=== PATIENT | male | born 1960 | race Hispanic/Latino ===

== ENCOUNTER 2021-08-10 13:30 | Emergency (ER) | payer MEDICAID, OTHER ==
[~2021-08-10] VITALS: Ht 175.3 cm; Wt 96.6 kg
[2021-08-10 14:05] LABS: EOSINOPHILS % (AUTO) 10.5 % (0.0-8.0); HEMATOCRIT 43.1 % (42-54); LYMPHOCYTES % (AUTO) 27.1 % (21.0-51.0); MEAN CORPUSCULAR HEMOGLOBIN 30.8 pg (27.0-33.0); MEAN CORPUSCULAR HGB CONC 34.3 g/dL (32.0-36.0); MEAN CORPUSCULAR VOLUME 89.6 fL (79-99); MONOCYTES % (AUTO) 6.5 % (3.0-13.0); NEUTROPHILS % (AUTO) 54.7 % (40.0-77.0); PLATELET COUNT (AUTO) 232 K/uL (130-400); RED BLOOD CELL COUNT(AUTO) 4.81 MIL/uL (4.50-6.20); RED CELL DISTRIBUTION WIDTH 12.8 % (11.0-15.5)
[2021-08-10 14:14] LABS: CREATININE 1.2 mg/dL (0.5-1.5)
[2021-08-10 14:18] LABS: ALBUMIN 3.6 g/dL (3.5-5.0); BILIRUBIN,TOTAL 0.6 mg/dL (0.2-1.0); TOTAL PROTEIN, SERUM 6.7 g/dL (6.0-8.3)
[2021-08-10] MEDS ORDERED: AZITHROMYCIN 250 MG TABLET PO ONE (14:30)
[2021-08-10] MEDS ORDERED: ALBUTEROL 0.083% 2.5 MG/3 ML INH IH ONE ×2 (14:30→15:00)
[2021-08-10] MEDS ORDERED: SOLU-MEDROL 125MG VIAL IVP ONE (14:30)
[2021-08-10] MEDS ORDERED: AMOX/CLAV 875/125MG TAB PO ONE (14:30)
[2021-08-10] MEDS ORDERED: 0.9%NACL 1000ML 1,000 ML IV SCH (14:30)
[2021-08-10] MEDS ORDERED: IPRATROPIUM/ALBUTEROL SULFATE 3 ML SOLUTION IH ONE ×2 (14:30→14:37)
[2021-08-10] MEDS ORDERED: GUAIFENESIN-CODEINE 5 ML SYRUP PO ONE (14:30)
[2021-08-10] MEDS ORDERED: PRED20TA3 PO (15:31)
[2021-08-10] MEDS ORDERED: BENZ-39 PO (15:31)
[2021-08-10] MEDS ORDERED: ALBU8.5H8 IH (15:31)
[2021-08-10] MEDS ORDERED: AMOX1TAB16 PO (15:31)
[2021-08-10 15:40] VITALS: BP 121/59
== END 2021-08-10 15:51 | disposition home or self-care (01) ==
LOC: EDH 13:30
DX: J20.9 Acute bronchitis, unspecified (principal); E86.0 Dehydration; Z20.822 Contact with and (suspected) exposure to COVID-19
CPT/HCPCS: 36415; 71045; 80053; 84484; 85025; 87635; 87804 ×2; 93005; 94640 ×3; 96361; 96374; 99285; C9803; J2930; J7030

== ENCOUNTER 2021-08-28 09:00 | Emergency (ER) | payer OTHER ==
[~2021-08-28] VITALS: Ht 175.3 cm; Wt 96.6 kg
[~2021-08-28 09:00] MED LIST: ALBU8.5H8 IH; AMOX1TAB16 PO; BENZ-39 PO; PRED20TA3 PO
[2021-08-28 09:27] LABS: BASOPHILS % (AUTO) 0.6 % (0.0-5.0); EOSINOPHILS % (AUTO) 9.2 % (0.0-8.0); HEMATOCRIT 46.3 % (42-54); LYMPHOCYTES % (AUTO) 29.1 % (21.0-51.0); MEAN CORPUSCULAR HEMOGLOBIN 30.7 pg (27.0-33.0); MEAN CORPUSCULAR HGB CONC 33.7 g/dL (32.0-36.0); MEAN CORPUSCULAR VOLUME 91.1 fL (79-99); MONOCYTES % (AUTO) 8.9 % (3.0-13.0); PLATELET COUNT (AUTO) 230 K/uL (130-400); RED BLOOD CELL COUNT(AUTO) 5.08 MIL/uL (4.50-6.20); WHITE BLOOD COUNT (AUTO) 6.4 K/uL (4.8-10.8)
[2021-08-28 09:48] LABS: ALBUMIN 3.8 g/dL (3.5-5.0); BILIRUBIN,TOTAL 0.5 mg/dL (0.2-1.0); CREATININE 1.3 mg/dL (0.5-1.5); POTASSIUM 5.1 mmol/L (3.5-5.1); TOTAL PROTEIN, SERUM 7.1 g/dL (6.0-8.3)
[2021-08-28] MEDS ORDERED: IPRATROPIUM/ALBUTEROL SULFATE 3 ML SOLUTION IH ONE (10:00)
[2021-08-28] MEDS ORDERED: SOLU-MEDROL 125MG VIAL IVP ONE (10:00)
[2021-08-28 10:49] LABS: B-TYPE NATRIURETIC PEPTIDE 44 pg/mL (0-100)
[2021-08-28] MEDS ORDERED: PREDNISOLONE 15 MG/5 ML SOLN PO STA (11:20)
[2021-08-28] MEDS ORDERED: ALBUTEROL 0.083% 2.5 MG/3 ML INH IH ONE (11:30)
[2021-08-28] MEDS ORDERED: PRED5TAB PO (12:11)
[2021-08-28] MEDS ORDERED: LORA10TA7 PO (12:11)
[2021-08-28 12:29] VITALS: BP 136/82
== END 2021-08-28 12:30 | disposition home or self-care (01) ==
LOC: EDH 09:00
DX: J44.1 Chronic obstructive pulmonary disease with (acute) exacerbation (principal); Z20.822 Contact with and (suspected) exposure to COVID-19; Z79.899 Other long term (current) drug therapy; Z98.890 Other specified postprocedural states
CPT/HCPCS: 36415; 71045; 80053; 83880; 84484; 85025; 87635; 87804 ×2; 94640 ×2; 96374; 99284; C9803; J2930

== ENCOUNTER 2021-10-10 15:17 | Emergency (ER) | payer OTHER ==
[~2021-10-10] VITALS: Ht 175.3 cm; Wt 96.2 kg
[~2021-10-10 15:17] MED LIST changes: +LORA10TA7 PO; +PRED5TAB PO
[2021-10-10 15:23] VITALS: BP 103/78
[2021-10-10] MEDS ORDERED: KETOROLAC 60 MG VIAL (30MG/ML) IM ONE ×2 (15:54→16:00)
[2021-10-10] MEDS ORDERED: CYCLOBENZAPRINE HCL 10 MG TABLET ONE (15:55)
[2021-10-10] MEDS ORDERED: CYCLOBENZAPRINE HCL 10 MG TABLET PO ONE (16:00)
[2021-10-10] MEDS ORDERED: TRAM1TAB2 PO (17:41)
[2021-10-10] MEDS ORDERED: AMOX1TAB16 PO (17:41)
[2021-10-10] MEDS ORDERED: AMOX/CLAV 875/125MG TAB PO ONE ×2 (17:42→18:00)
== END 2021-10-10 17:54 | disposition home or self-care (01) ==
LOC: EDH 15:17
DX: S02.2XXA Fracture of nasal bones, initial encounter for closed fracture (principal); S16.1XXA Strain of muscle, fascia and tendon at neck level, initial encounter; J45.909 Unspecified asthma, uncomplicated; Z79.52 Long term (current) use of systemic steroids; E66.9 Obesity, unspecified; Z68.31 Body mass index [BMI] 31.0-31.9, adult; W18.39XA Other fall on same level, initial encounter; Y93.89 Activity, other specified; Y92.89 Other specified places as the place of occurrence of the external cause; Y99.8 Other external cause status
CPT/HCPCS: 99284; 70450; 72125; 70486; 96372; J1885

== ENCOUNTER 2022-11-07 13:46 | Emergency (ER) | payer OTHER ==
[~2022-11-07] VITALS: Ht 175.3 cm; Wt 98.0 kg
[~2022-11-07 13:46] MED LIST changes: +TRAM1TAB2 PO
[2022-11-07 15:17] LABS: BASOPHILS # (AUTO) 0.06 K/uL (0.00-0.20); BASOPHILS % (AUTO) 0.7 % (0.0-5.0); EOSINOPHILS # (AUTO) 0.51 K/uL (0.00-0.70); EOSINOPHILS % (AUTO) 6.2 % (0.0-8.0); HEMATOCRIT 47.7 % (42-54); IMMATURE GRANULOCYTE ABSOLUTE 0.02 K/uL (0-1); MEAN CORPUSCULAR HEMOGLOBIN 30.3 pg (27.0-33.0); MEAN CORPUSCULAR HGB CONC 32.5 g/dL (32.0-36.0); MEAN CORPUSCULAR VOLUME 93.3 fL (79-99); MONOCYTES # (AUTO) 0.6 K/uL (0.1-1.0); NEUTROPHILS % (AUTO) 60.9 % (40.0-77.0); PLATELET COUNT (AUTO) 244 K/uL (130-400); RED BLOOD CELL COUNT(AUTO) 5.11 MIL/uL (4.50-6.20); RED CELL DISTRIBUTION WIDTH 13.3 % (11.0-15.5); WHITE BLOOD COUNT (AUTO) 8.2 K/uL (4.8-10.8)
[2022-11-07 15:19] LABS: APPEARANCE,URINE CLEAR (CLEAR); BILIRUBIN,URINE NEGATIVE (NEGATIVE); COLOR,URINE YELLOW (YELLOW); GLUCOSE, URINE (UA) NEGATIVE (NEGATIVE); KETONES,URINE NEGATIVE (NEGATIVE); LEUKOCYTE ESTERASE ,URINE NEGATIVE Leu/uL (NEGATIVE); NITRATE,URINE NEGATIVE (NEGATIVE); OCCULT BLOOD,URINE NEGATIVE (NEGATIVE); PROTEIN,URINE 10 mg/dL (NEGATIVE); UROBILINOGEN,URINE 3 mg/dL (0.2-1.0)
[2022-11-07 15:30] LABS: CREATININE 1.3 mg/dL (0.5-1.5); POTASSIUM 4.1 mmol/L (3.5-5.1)
[2022-11-07 15:32] LABS: ADD UA MICROSCOPIC YES
[2022-11-07 15:34] LABS: BACTERIA,URINE RARE /HPF (None Seen); MUCUS,URINE FEW LPF (None Seen); RBC,URINE 0-1 /HPF (0-1); WBC,URINE 0-1 /HPF (0-1)
[2022-11-07 15:36] LABS: ALBUMIN 3.8 g/dL (3.5-5.0); BILIRUBIN,TOTAL 0.6 mg/dL (0.2-1.0); TOTAL PROTEIN, SERUM 7.3 g/dL (6.0-8.3)
[2022-11-07 16:55] VITALS: BP 117/69; PULSE 69; RESP 17; O2SAT 98
[2022-11-07] MEDS ORDERED: ACETAMINOPHEN 500 MG TABLET ONE (17:00)
[2022-11-07] MEDS ORDERED: ACETAMINOPHEN 500 MG TABLET PO ONE (17:30)
== END 2022-11-07 17:04 | disposition home or self-care (01) ==
LOC: EDH 13:46
DX: N20.0 Calculus of kidney (principal); J45.909 Unspecified asthma, uncomplicated; E66.9 Obesity, unspecified; Z79.52 Long term (current) use of systemic steroids; Z68.31 Body mass index [BMI] 31.0-31.9, adult
CPT/HCPCS: 36415; 74176; 80053; 81001; 85025

== ENCOUNTER 2025-02-05 12:57 | Inpatient (IN) | payer OTHER ==
[2025-02-05] VITALS (7 sets, daily range): BP systolic 132–141; BP diastolic 72–81; PULSE 103–118; RESP 18–24; TEMP 98.4–99.6; O2SAT 97
[~2025-02-05] VITALS: Ht 175.3 cm; Wt 97.7 kg
--- NOTE | 2025-02-05 13:04 | NUR ---
PT JUST PLACED BY EMS IN ED BED 12
--- NOTE | 2025-02-05 13:12 | ERN ---
ED Note History of Present Illness Stated Complaint: SOB Chief Complaint: Dyspnea/Respdistress Time Seen by MD: 13:07 Dictation: Say 64-year-old male coming in via EMS with complaints of shortness a breath congested cough and body aches for the last two days. He states the cough has been productive with green-yellow phlegm. He has had low-grade fever. Says he has a history of COPD emphysema with a asthma. Has been using albuterol without success. Use minutes prior to arrival, then was given terbutaline by EMS in route. Allergies: Coded Allergies: vancomycin (Unverified Allergy, Intermediate, SWELLING, 12/16/22) Home Meds Active Scripts Losartan Potassium (Cozaar) 50 Mg Tablet, 50 MG PO BID, #60 TAB 0 Refills Prov:JOAQUIN ZELAYA [facility] 12/18/22 Guaifenesin/Codeine Phos (Guaifenesin-Codeine Syrup) 10 Mg-100 Mg/5 Ml (5 Ml) Liq, 10 ML PO Q4H PRN for COUGH/COLD SYMPTOMS, #280 ML 0 Refills Prov:JOAQUIN ZELAYA [facility] 12/18/22 Cefuroxime Axetil (Cefuroxime) 500 Mg Tablet, 500 MG PO BID, #10 TAB 0 Refills Prov:JOAQUIN ZELAYA [facility] 12/18/22 Prednisone (Prednisone) 20 Mg Tablet, 40 MG PO DAILY, #5 TAB 0 Refills Prov:JOAQUIN ZELAYA [facility] 12/18/22 Reported Medications Amoxicillin/Potassium Clav (Amox Tr-K Clv 875-125 mg Tab) 875 Mg-125 Mg Tablet, 1 TAB PO BID for 10 Days, #20 TAB 0 Refills 04/27/ Guaifenesin (Guaifenesin) 400 Mg Tablet, 600 MG PO BID PRN for COUGH/COLD SYMPTOMS, TAB 04/27/25 Albuterol Sulfate (Ventolin Hfa) 90 Mcg Hfa.aer.ad, 2 PUFF IH Q4HPRN PRN for wheezing for 30 Days, #18 GM 0 Refills 04/27/25 Prednisone (Prednisone) 10 Mg Tab.ds.pk, 1 TAB PO DAILY for 5 Days, #21 TAB 0 Refills 04/27/24 Rosuvastatin Calcium (Rosuvastatin Calcium) 40 Mg Tablet, 1 TAB PO DAILY for high cholesterol for 30 Days, #30 TAB 0 Refills 04/27/24 Venlafaxine HCl (Venlafaxine HCl) 75 Mg Tablet, 75 MG PO DAILY, TAB 04/27/24 Ipratropium/Albuterol Sulfate (Combivent Respimat Inhal [place]) 20 Mcg-100 Mcg/Actuation Aer.w.adap, 4 GM IH Q2HPRN PRN for SHORTNESS OF BREATH/WHEEZING 12/10/22 Bupropion HCl (Bupropion HCl) 100 Mg Tablet, 300 MG PO DAILY, TAB 12/10/22 Sertraline HCl (Sertraline HCl) 100 Mg Tablet, 100 MG PO DAILY, TAB 12/10/22 Montelukast Sodium (Montelukast Sodium) 10 Mg Tablet, 10 MG PO HS, TAB 12/10/22 Omeprazole (Omeprazole) 20 Mg Tablet.dr, 20 MG PO DAILY, TAB 12/10/22 Folic Acid (Folvite) 1 Mg Tab, 1 MG PO DAILY, TAB 12/10/22 Sildenafil Citrate (Viagra) 100 Mg Tablet, 100 MG PO AD for ERECTILE DYSFUNCTION, TAB 12/10/22 Trazodone HCl (Trazodone HCl) 50 Mg Tablet, 50 MG PO HS, TAB 12/10/22 Gabapentin (Gabapentin) 100 Mg Capsule, 100 MG PO TID, CAP 12/10/22 Lisinopril (Lisinopril) 5 Mg Tablet, 2.5 MG PO DAILY, TAB 12/10/22 Cetirizine HCl (Cetirizine HCl) 10 Mg Tablet, 10 MG PO DAILY, TAB 12/10/22 Fluticasone Propionate (Flonase Nasal [place]) 50 Mcg/Actuation [place], 50 MCG NASAL HS, SPRAY 12/10/22 Ipratropium/Albuterol Sulfate (Iprat-Albut 0.5-3(2.5) mg/3 ml) 0.5 Mg-3 Mg (2.5 Mg Base)/3 Ml Ampul.neb, 3 ML IH QIDP PRN for SHORTNESS OF BREATH/WHEEZING 12/10/22 Past Medical History Past Medical History: Asthma, COPD, GERD, Heart Disease, Other Additional Past Medical Hx: OBESE Surgical History: Cholecystectomy Surgical History Other: LEFT SHOULDER, Family History: Negative Social History: Negative RN Note Reviewed/Agreed w/PFSH: Yes Review of System Dictation CONSTITUTIONAL: NEGATIVE EXCEPT FOR HPI FEVER CHILLS HEAD/FACE: NEGATIVE EXCEPT FOR HPI EENT: NEGATIVE EXCEPT FOR HPI RESPIRATORY: NEGATIVE EXCEPT FOR HPI SEVERE SHORTNESS A BREATH WITH DYSPNEA HYPOXIA GASTROINTESTINAL/ABDOMINAL: NEGATIVE EXCEPT FOR HPI GENITOURINARY: NEGATIVE EXCEPT FOR HPI MUSCULOSKELETAL: NEGATIVE EXCEPT FOR HPI INTEGUMENTARY: NEGATIVE EXCEPT FOR HPI NEUROLOGICAL/PSYCH: NEGATIVE EXCEPT FOR HPI HEMATOLOGIC/LYMPHATIC: NEGATIVE EXCEPT FOR HPI ALL SYSTEMS NEGATIVE, EXCEPT NOTED ABOVE. 13 POINT REVIEW OF SYSTEMS ASSESSED AND ALL NEGATIVE EXCEPT FOR ABOVE. Initial Vital Sign VS Vital Signs Date Time Temp Pulse Resp B/P (MAP) Pulse Ox O2 Delivery O2 Flow Rate FiO2 02/05/25 13:04 100.4 116 26 156/84 97 Nasal Cannula 3.0 Physical Exam Dictation VITAL SIGNS REVIEWED MODERATE ACUTE DISTRESS, WELL DEVELOPED, NOURISHED. HEAD AND FACE: NON-TRAUMATIC. EYES: PERRL, PINK CONJUNCTIVAS, EYELID NO TRAUMA, ANTERIOR CHAMBER WITH ARCUS SENILIS. EARS: PINNAS INTACT AND NO SIGNS OF TRAUMA OR ERYTHEMA EAR CANALS CLEAR AND NO DISCHARGE TM NO ERYTHEMA NOSE: NO DISCHARGE, NO BLEEDING. OROPHARYNX: MOUTH NORMAL, TONGUE PINK, PHARYNX CLEAR,NO ERYTHEMA, TONSILS NO EXUDATES, NO ABSCESSES NOTED, MUCOUS MEMBRANE MOIST NECK: SUPPLE, NON-TENDER, NO THYROMEGALY, NO MASSES, NO JVD, NO BRUITS BREAST:DEFERRED CHEST:NO TENDERNESS, NO CREPITUS, NO PARADOXICAL MOVEMENT, NO RETRACTIONS LUNGS: CLEAR TO AUSCULTATION VERY DIMINISHED THROUGHOUT. TACHYPNEA PATIENT ONLY ABLE TO SPEAK 3-4 WORD SENTENCES HEART: TACHYCARDIA/REGULAR, NO MURMUR, NO GALLOPS VASCULAR: NO PERIPHERAL EDEMA, ABDOMEN: SOFT, POSITIVE BOWEL SOUNDS, NONDISTENDED, NO GUARDING, NONTENDER, NO REBOUND, NO MASSES NO HEPATOMEGALY, NO SPLENOMEGALY, NO WINSLOW'S SIGN, NO HERNIAS. RECTAL: DEFERRED GENITAL: DEFERRED NEUROLOGICAL: NORMAL SPEECH, MOTOR FUNCTION INTACT, SENSORY FUNCTION INTACT MUSCULOSKELETAL: NECK NONTENDER, FULL RANGE OF MOTION, BACK NONTENDER, FULL RANGE OF MOTION, EXTREMITIES: NONTENDER, FULL RANGE OF MOTION SKIN: COLOR PINK, DRY, NO TURGOR, NO RASH, NO LACERATIONS, NO ABRASIONS, NO CONTUSIONS. LYMPHATIC: DEFERRED Results (Laboratory/Radiology) Laboratory/Radiology Laboratory Tests Test 02/05/25 13:15 02/05/25 13:21 02/05/25 13:30 02/05/25 13:33 Blood Gas Specimen Type Arterial Arterial Arterial Blood pH 7.420 (7.350-7.450) 7.435 (7.350-7.450) Arterial Blood Partial Pressure CO2 32 mmHg (35-48) L 28 mmHg (35-48) L Arterial Blood Partial Pressure O2 < 45.0 mmHg (83.0-108.0) 67.1 mmHg (83.0-108.0) L Arterial Blood HCO3 20.0 mmol/L (21.0-28.0) L 18.6 mmol/L (21.0-28.0) L Arterial Blood Oxygen Saturation 49.4 % (94.0-98.0) L 94.4 % (94.0-98.0) Arterial Blood Base Excess -3.3 mmol/L (-2.0-3.0) L -4.3 mmol/L (-2.0-3.0) L Hemoglobin (Blood Gas) 15.5 g/dL (13.5-17.5) 13.4 g/dL (13.5-17.5) L Sodium (Blood Gas) 139 MMOL/L (136-145) 138 MMOL/L (136-145) Bedside Potassium (Blood Gas) 3.7 MMOL/L (3.4-4.5) 3.7 MMOL/L (3.4-4.5) Bedside Chloride (Blood Gas) 104 MMOL/L (98-107) 106 MMOL/L (98-107) Bedside Glucose (Blood Gas) 100 MG/DL (65-95) H 93 MG/DL (65-95) Bedside Ionized Calcium (Blood Gas) 1.15 MMOL/L (1.15-1.33) 1.11 MMOL/L (1.15-1.33) L Bedside Lactic Acid (Blood Gas) 2.57 MMOL/L (0.36-0.75) H 2.10 MMOL/L (0.36-0.75) H Blood Gas Temperature 37.0 CELSIUS (35.5-37.0) 37.0 CELSIUS (35.5-37.0) Blood Gas Flow-by 3.00 L/min (0.00-15.00) 3.00 L/min (0.00-15.00) Blood Gas Vent Mode NC (ROOM AIR) NC (ROOM AIR) FiO2 32.0 % 32.0 % Blood Gas Specimen Comment RR RR RN LUPE White Blood Count 7.8 K/uL (4.8-10.8) Red Blood Count 5.09 MIL/uL (4.50-6.20) Hemoglobin 15.3 g/dL (14.0-18.0) Hematocrit 45.8 % (42-54) Mean Corpuscular Volume 90.0 fL (79-99) Mean Corpuscular Hemoglobin 30.1 pg (27.0-33.0) Mean Corpuscular Hemoglobin Concent 33.4 g/dL (32.0-36.0) Red Cell Distribution Width 13.2 % (11.0-15.5) Platelet Count 227 K/uL (130-400) Mean Platelet Volume 10.0 fL (7.5-10.5) Nucleated Red Blood Cells 0.0 % (0.0-0.19) Sodium Level 140 mmol/L (136-145) Potassium Level 3.5 mmol/L (3.5-5.1) Chloride Level 104 mmol/L (101-111) Carbon Dioxide Level 25 mmol/L (21-32) Blood Urea Nitrogen 10 mg/dL (7-18) Creatinine 1.3 mg/dL (0.5-1.3) Glomerular Filtration Rate Calc 61 mL/min (>90) Random Glucose 101 mg/dL (70-105) Lactic Acid Level 2.9 mmol/L (0.8-2.5) H Total Calcium 8.5 mg/dL (8.5-10.1) Magnesium Level 1.70 mg/dL (1.80-2.40) L Troponin I High Sensitivity 8 ng/L (4-75) B-Type Natriuretic Peptide 47 pg/mL (0-100) Influenza Type A Antigen Positive For Type A Influenza Type B Antigen Negative For Type B SARS-CoV-2 Antigen (Rapid) PRESUMPTIVE NEGATIVE Labs Reviewed?: Yes EKG Comment: 1301/EKG SINUS TACHYCARDIA/HEART RATE 112/AXIS NORMAL/NO ECTOPY ED Course ED Course Orders Procedure Category Date Status Time Arterial Blood Gas + RT 02/05/25 Transmitted 13:04 Arterial Blood Gas + RT 02/05/25 Transmitted 13:03 Cbc Without LAB 02/05/25 Complete Differential 13:03 Basic Metabolic Panel LAB 02/05/25 Complete 13:03 Troponin I High LAB 02/05/25 Complete Sensitivity 13:03 12 Lead Ekg Tracing- EKG 02/05/25 Logged Technical 13:03 Chest 1vw RAD 02/05/25 Resulted 13:03 Magnesium LAB 02/05/25 Complete 13:03 B-Type Natriuretic LAB 02/05/25 Complete Peptide 13:03 Lactic Acid LAB 02/05/25 Complete 13:03 Blood Cult NED 02/05/25 In Process 13:03 Methylprednisolone PHA 02/05/25 Complete Succ 125mg (Solu-Medr 13:30 Albuterol 0.083% PHA 02/05/25 Complete 2.5mg/3ml (Proventil 13:30 Budesonide 0.5 Mg/2 PHA 02/05/25 Complete Ml Inh (Pulmicort 0. 13:08 Oxygen By Nc/Pulse Ox CPOE 02/05/25 Transmitted 13:08 Covid19 (Sars Antigen LAB 02/05/25 Complete Rapid) 13:10 Arterial Blood Gas LAB 02/05/25 Complete Arterial + 13:15 Arterial Blood Gas LAB 02/05/25 Complete Arterial + 13:33 Influenza Type A & B, LAB 02/05/25 Complete Rapid 13:37 Levofloxacin 750 PHA 02/05/25 Complete Mg/D5w 150 Ml 14:00 Magnesium 2gm Premix PHA 02/05/25 In Process 50ml (Magnesium 2gm 14:00 Oseltamivir Phosphate PHA 02/05/25 Complete (Tamiflu) 14:30 Edm Admit Bridge Order ADM 02/05/25 Transmitted 14:41 Current Medications Medications (Trade) Dose Ordered Sig/Mehran Route PRN Reason Start Time Stop Time Status Last Admin Dose Admin Albuterol Sulfate (Proventil 0.083% 2.5mg/3ml) 5 mg ONCE ONCE IH 02/05/25 13:30 02/05/25 13:31 DC 02/05/25 13:37 Budesonide (Pulmicort 0.5 Mg/2ml) 0.5 mg ONCE STAT IH 02/05/25 13:08 02/05/25 13:14 DC 02/05/25 13:37 Levofloxacin/ Dextrose (LEvaquIN 750 MG/ D5W 150 ML) 750 mg ONCE ONCE IV 02/05/25 14:00 02/05/25 14:01 DC Magnesium Sulfate 50 ml @ 0 mls/hr PROTOCOL IV 02/05/25 14:00 03/07/25 13:59 Methylprednisolone Sodium Succinate (Solu-medROL 125MG) 125 mg ONCE ONCE IVP 02/05/25 13:30 02/05/25 13:31 DC 02/05/25 13:24 Oseltamivir Phosphate (Tamiflu) 75 mg ONCE ONCE PO 02/05/25 14:30 02/05/25 14:32 DC Vital Signs Date Time Temp Pulse Resp B/P (MAP) Pulse Ox O2 Delivery O2 Flow Rate FiO2 02/05/25 13:37 115 24 02/05/25 13:04 100.4 116 26 156/84 97 Nasal Cannula 3.0 1440/SPOKE WITH USE EKG LABS CHEST X-RAY AND INTERVENTIONS FOR COPD EXACERBATION TO INCLUDE FOODS POSITIVE HEART Score Response (Comments) Value History: Low suspicion (0) 0 Age: 45-65yrs (+1) 1 Risk Factors: No known risk factors (0) 0 Total 1 Medical Decision Making MDM 1435/MDM: DIFFERENTIAL DIAGNOSIS: PNEUMONIA/BRONCHITIS/SARS COVID/INFLUENZA/COPD EXACERBATION/ACS/AMI/FLUID OVERLOAD/ELECTROLYTE IMBALANCE/DEHYDRATION/SEPSIS RATIONALE: TESTS CONSIDERED AND ORDERED SECONDARY TO SHARED DECISION MAKING INCLUDE: LABS, ECG AND RADIOLOGY PREVIOUS OUTSIDE RECORDS REVIEWED: OLD ER VISITS. RISK OF COMPLICATION AND/OR MORBIDITY OR MORTALITY OF PATIENT MANAGEMENT: NONE MEDICATIONS-PER MEDICATION RECONCILIATION NEED FOR HOSPITALIZATION: PATIENT DOES MEET CRITERIA FOR HOSPITALIZATION. ADMITTED FOR ACUTE SUPPORT OF RESPIRATORY FAILURE, COPD EXACERBATION AND TREATMENT FOR SEPSIS. NEED FOR EMERGENCY MAJOR/MINOR SURGERY: NO THERE ARE NO SOCIAL CONCERNS WITH THIS PATIENT. PRESCRIPTION DRUG MANAGEMENT PRESCRIPTIONS WILL INCLUDE SYMPTOMATIC CARE PATIENT'S PRIOR EXTERNAL MEDICAL RECORDS FROM OTHER ER VISITS WERE REVIEWED BY ME INDICATED. PRIOR TESTING AND RESULTS FROM PREVIOUS VISITS WERE REVIEWED. PRIOR TESTS WERE TAKEN INTO ACCOUNT WITH MEDICAL DECISION MAKING AND RESOURCE UTILIZATION, INDEPENDENT HISTORIAN/HISTORIANS WERE USED TO OBTAIN COMPLETE MEDICAL HISTORY. I INDEPENDENTLY INTERPRETED THE TEST THAT WERE PERFORMED, RESULTS WERE REVIEWED BY ME AND CONSIDERED FINDINGS ON RADIOLOGY IF ORDERED. MEDICAL MANAGEMENT AND EXAMINATION INTERPRETATION DISCUSSIONS WERE HAD BY ME WITH OTHER QUALIFIED HEALTHCARE PROFESSIONALS INDICATED FOR THE PATIENT'S CARE. DX & DISP Disposition: Inpatient Decision to Admit Time: 14:45 Departure Impression: Primary Impression: Acute hypoxemic respiratory failure Additional Impressions: COPD with exacerbation, Hypomagnesemia, Influenza A, Sepsis Condition: Stable Referrals: JERSON STEVENSON MD (PCP) Time of Disposition: 14:46 I have reviewed the case, and I agree with, Diagnosis and Plan FRANCISCO J FREEMAN [employer] SYSTEMS TECHNICIAN Feb 05, 2025 13:12
[2025-02-05 13:25] LABS: NUCLEATED RED BLOOD CELLS 0.0 % (0.0-0.19); PLATELET COUNT (AUTO) 227.0 K/uL (130-400); RED BLOOD CELL COUNT(AUTO) 5.09 MIL/uL (4.50-6.20); RED CELL DISTRIBUTION WIDTH 13.2 % (11.0-15.5); WHITE BLOOD COUNT (AUTO) 7.8 K/uL (4.8-10.8)
[2025-02-05 13:35] LABS: ABG BASE EXCESS -4.3 mmol/L (-2.0-3.0); ABG HCO3 18.6 mmol/L (21.0-28.0); ABG OXYGEN SATURATION 94.4 % (94.0-98.0); ABG PCO2 28 mmHg (35-48); ABG PH 7.435 (7.350-7.450); CARBON MONOXIDE 0.6 % (0.5-1.5); PO2, ARTERIAL BG 67.1 mmHg (83.0-108.0); TEMPERATURE, CELSIUS BG 37.0 CELSIUS (35.5-37.0); VENT MODE, BG NC (ROOM AIR)
[2025-02-05] MEDS: BUDESONIDE 0.5 MG/2 ML INH IH STA (13:37)
[2025-02-05] MEDS: ALBUTEROL 0.083% 2.5 MG/3 ML INH IH ONE (13:37)
[2025-02-05 13:38] LABS: CREATININE 1.3 mg/dL (0.5-1.3); GLOMERULAR FILTR. RATE CALC 61.0 mL/min (>90); GLUCOSE,RANDOM 101.0 mg/dL (70-105); SODIUM SERUM 140.0 mmol/L (136-145); UREA NITROGEN, BLOOD 10.0 mg/dL (7-18)
[2025-02-05] MEDS ORDERED: MAGNESIUM 2GM PREMIX 50ML 50 ML IV SCH (14:00)
[2025-02-05 14:11] LABS: INFLUENZA TYPE B Negative For Type B (NEGATIVE)
--- NOTE | 2025-02-05 14:14 | HMCIMG ---
EXAM: CR Chest, 1 View. CLINICAL HISTORY: SOB COMPARISON: None provided. FINDINGS: LUNGS: The lungs show no infiltrate or other acute finding. PLEURAL SPACES: No pleural effusion or pneumothorax. MEDIASTINUM: The cardiomediastinal silhouette is within normal limits. BONES: No acute osseous abnormality. IMPRESSION: No acute cardiopulmonary pathology is evident. /[place]
[2025-02-05 14:15] LABS: INFLUENZA TYPE A Positive For Type A (NEGATIVE)
--- NOTE | 2025-02-05 14:59 | HP ---
[facility] HISTORY AND PHYSICAL Date of Service: Feb 05, 2025 Time of Service: 14:59 HISTORY OF PRESENT ILLNESS: This is a 64-year-old male with past medical history of asthma/COPD, PTSD who presented to the hospital secondary to shortness of breath, cough. Patient states his symptoms started yesterday. Patient's father recently and he was in a gathering yesterday. He has been having fever with associated cough at home. He feels his cough is dry in nature. He denies any chest pain, abdominal pain, nausea, vomiting. Taking deep breaths causes his cough to get worse. Denied any falls, syncopal episode. Denied any changes in his bowel movement. He used albuterol multiple times at home without improvement in his shortness of breath. Has not followed up with a floor representative as outpatient Secondary to non improving symptoms patient thereafter came to the hospital for further evaluation Labs were notable for white count of 7.8, hemoglobin was 15.3, platelet count was 227 K, sodium was 140, potassium was 3.5, creatinine was 1.3, lactic acid was 2.9, magnesium was 1.7, troponin was negative x1 Chest x-ray showed no acute infiltrates Patient was noted to be positive for influenza A Patient received albuterol, methylprednisolone in the ER. Presentation to the ER patient's temperature was 100.4, heart rate was 1 one six, respiratory rate was 26, blood pressure was 156/84, patient was saturating 97% on 3 L nasal cannula REVIEW OF SYSTEMS CONSTITUTIONAL: Denies fevers, chills, or night sweats. No unintentional weight loss reported. NEUROLOGICAL: Denies headache, amaurosis fugax, motor weakness, sensory deficit, vertigo/spinning sensation, gait abnormalities, or tremors. ENT: No hearing loss, otalgia, otorrhea, rhinitis, rhinorrhea, hoarseness, or sore throat. CARDIOVASCULAR: Denies any exertional angina, dyspnea on exertion, orthopnea, paroxysmal nocturnal dyspnea, palpitations, life-threatening arrhythmias, claudication. PULMONARY: Positive for cough, shortness of breath. Denied any sputum produc tion, hemoptysis. SLEEP: Denies morning headaches, daytime somnolence or napping. Denies difficulty falling asleep, staying asleep, waking from sleep. Denies knowledge of snoring. GASTROINTESTINAL: Denies any type of dysphagia to either liquids or solids. Denies nausea, vomiting, pyrosis, early satiety, abdominal pain, diarrhea, constipation, or changes in stool consistency or caliber. Denies coffee-ground emesis, hematemesis, hematochezia, or melanotic stools. GENITOURINARY: Denies frequency, urgency, nocturia, hematuria or incontinence (Storage/Irritative symptoms.) Low urinary stream, straining to void, urinary intermittency or hesitancy, splitting of the voiding stream, terminal dribbling. ENDOCRINOLOGIC: Denies polyuria, polydipsia, polyphagia or heat/cold intolerances. HEMATOLOGIC: Denies thrombophilia/previous clots, or coagulopathy/bleeding disorders. ONCOLOGIC: Denies personal history of malignancy. DERMATOLOGIC: Denies rashes or pruritus. PSYCHIATRIC: Denies any suicidal or homicidal ideation. Denies hallucinations. PAST MEDICAL HISTORY: Asthma/COPD, history of PTSD, GERD PAST SURGICAL HISTORY: History of left shoulder surgery PAST SOCIAL HISTORY: Denied any smoking. Patient drinks around 2-3 beers 2-3 times per week. Denied any drug use FAMILY HISTORY: Denied any pertinent family history Coded Allergies: vancomycin (Unverified Allergy, Intermediate, SWELLING, 12/16/22) PHYSICAL EXAM GENERAL APPEARANCE: The patient is awake, alert, and oriented, in no acute cardiopulmonary distress. NEUROLOGICAL: Cranial nerves II-XII grossly intact. Motor is 5/5 in bilateral upper and lower extremities proximal to distal. No sensory deficits. HEENT: Face is symmetric. Pupils are equal and reactive. Extraocular movements are intact. NECK: Supple. No JVD. No thyromegaly. No submental, submandibular, pre- /postauricular, occipital or supraclavicular lymphadenopathy. CHEST: Expiratory wheezing present with decreased breath sounds bilaterally LUNGS: Absence of any rales, rhonchi or any wheezing. CARDIOVASCULAR: Regular. S1 and S2 normal. No appreciable rubs, murmurs or gallops. ABDOMEN: Soft, nontender, and nondistended. There is no rebound, voluntary guarding, or rigidity. : Deferred. No [place]. EXTREMITIES: Non-edematous and not cyanotic. No clubbing. Good capillary refill. SKIN: No skin breakdown. Vital Sign (Last 24 Hours) 02/05/25 02/05/25 13:04 13:37 Temp 100.4 Pulse 115 Resp 24 B/P (MAP) 156/84 Pulse Ox 97 O2 Delivery Nasal Cannula O2 Flow Rate 3.0 LABS: Laboratory: Test 02/05/25 13:33 02/05/25 13:30 02/05/25 13:21 Range/Units Blood Gas Specimen Type Arterial Arterial Blood pH 7.435 7.350-7.450 Arterial Blood Partial Pressure CO2 28 L 35-48 mmHg Arterial Blood Partial Pressure O2 67.1 L 83.0-108.0 mmHg Arterial Blood HCO3 18.6 L 21.0-28.0 mmol/L Arterial Blood Oxygen Saturation 94.4 94.0-98.0 % Arterial Blood Base Excess -4.3 L -2.0-3.0 mmol/L Hemoglobin (Blood Gas) 13.4 L 13.5-17.5 g/dL Sodium (Blood Gas) 138 136-145 MMOL/L Bedside Potassium (Blood Gas) 3.7 3.4-4.5 MMOL/L Bedside Chloride (Blood Gas) 106 98-107 MMOL/L Bedside Glucose (Blood Gas) 93 65-95 MG/DL Bedside Ionized Calcium (Blood Gas) 1.11 L 1.15-1.33 MMOL/L Bedside Lactic Acid (Blood Gas) 2.10 H 0.36-0.75 MMOL/L Blood Gas Temperature 37.0 35.5-37.0 CELSIUS Blood Gas Flow-by 3.00 0.00-15.00 L/min Blood Gas Vent Mode NC ROOM AIR FiO2 32.0 % Blood Gas Specimen Comment RR RN LUPE Influenza Type A Antigen Positive For Type A *A NEGATIVE Influenza Type B Antigen Negative For Type B NEGATIVE SARS-CoV-2 Antigen (Rapid) PRESUMPTIVE NEGATIVE NEGATIVE White Blood Count 7.8 4.8-10.8 K/uL Red Blood Count 5.09 4.50-6.20 MIL/uL Hemoglobin 15.3 14.0-18.0 g/dL Hematocrit 45.8 42-54 % Mean Corpuscular Volume 90.0 79-99 fL Mean Corpuscular Hemoglobin 30.1 27.0-33.0 pg Mean Corpuscular Hemoglobin Concent 33.4 32.0-36.0 g/dL Red Cell Distribution Width 13.2 11.0-15.5 % Platelet Count 227 130-400 K/uL Mean Platelet Volume 10.0 7.5-10.5 fL Nucleated Red Blood Cells 0.0 0.0-0.19 % Sodium Level 140 136-145 mmol/L Potassium Level 3.5 3.5-5.1 mmol/L Chloride Level 104 101-111 mmol/L Carbon Dioxide Level 25 21-32 mmol/L Blood Urea Nitrogen 10 7-18 mg/dL Creatinine 1.3 0.5-1.3 mg/dL Glomerular Filtration Rate Calc 61 >90 mL/min Random Glucose 101 70-105 mg/dL Lactic Acid Level 2.9 H 0.8-2.5 mmol/L Total Calcium 8.5 8.5-10.1 mg/dL Magnesium Level 1.70 L 1.80-2.40 mg/dL Troponin I High Sensitivity 8 4-75 ng/L B-Type Natriuretic Peptide 47 0-100 pg/mL Current Medications Medications (Trade) Dose Ordered Sig/Mehran Route PRN Reason Start Time Stop Time Status Last Admin Dose Admin Budesonide (Pulmicort 0.5 Mg/2ml) 0.5 mg ONCE STAT IH 02/05/25 13:08 02/05/25 13:14 DC 02/05/25 13:37 0.5 MG Magnesium Sulfate 50 ml @ 0 mls/hr PROTOCOL IV 02/05/25 14:00 03/07/25 13:59 DIAGNOSTICS / RADIOLOGY: Chest x-ray shows no acute infiltrates ASSESSMENT: Acute hypoxic respiratory failure secondary to viral URI POA Influenza associated URI Sepsis secondary to influenza Acute asthma/COPD exacerbation POA Hypertension Hyperlipidemia History of PTSD Lactic acidosis History of alcohol use PLAN: - patient to be admitted to [facility] -in reference to acute hypoxic respiratory failure with asthma exacerbation. Patient will be placed on albuterol/ipratropium q.4 hours. Start methylprednisolone 60 mg q.8 hours. Patient to be given cefepime and doxycycline empirically. If cultures are negative we can stop antibiotics -obtain pulmonology consultation -the patient to be started on NS for gentle hydration -obtain home medications will be reconciled once available -start Pepcid for GI prophylaxis -thiamine and folic acid -Robitussin DM for cough PRN -further orders per hospitalization course Advanced Care Planning Which of the following were discussed: Hospice care: Yes __ No _x_ Therapeutic options: Yes __ No __ Advance directives: Yes __ No __ Other discussions: Discussed with who?: patient (Patient, family or surrogates) Voluntary nature of this service was explained to the patient? Yes _x_ No __ Amount of time spent: 25 minutes JEFF Christian MD, MD Feb 05, 2025 14:59
--- NOTE | 2025-02-05 15:11 | NUR ---
DR ST WAS IN TO SEE THE PT.
--- NOTE | 2025-02-05 15:13 | NUR ---
BED ASSIGNMENT ROOM 202 JUST NOW ASSIGNED TO PT BY MAVERICK CLARK RN. EXT [id number] ROSIE OLGUIN
[2025-02-05] MEDS: 0.9%NACL 1000ML 1,000 ML IV SCH (15:42)
[2025-02-05] MEDS: DOXYCYCLINE 100MG+NS 250ML 250 ML IV SCH (15:42)
[2025-02-05] MEDS: OSELTAMIVIR PHOSPHATE 75 MG CAP PO ONE (15:42)
[2025-02-05] MEDS: FAMOTIDINE 20MG VIAL IV SCH (16:00)
[2025-02-05] MEDS ORDERED: Solu-medROL 40MG VIAL IVP SCH (17:00)
--- NOTE | 2025-02-05 18:10 | CONS ---
[facility] CONSULTATION NOTE Date Patient Seen: Feb 05, 2025 Time of Visit: 17:56 Supervising Physician: DR. BELTRAN RODRIGUEZ Reason for Consultation: INFLUENZA A INFECTION , ACUTE HYPOXEMIC RESPIRATORY FAILURE Primary Care Physician: JERSON AUGUSTIN Outpatient Specialists: [ ] Inpatient Consults: [ ] PROBLEM LIST: 1. ACUTE HYPOXEMIC RESPIRATORY FAILURE, POA 2. ASTHMA EXACERBATION, POA 3. LACTIC ACIDOSIS SECONDARY TO ACUTE HYPOXEMIA, POA 4. HYPOMAGNESEMIA, POA 5. ESSENTIAL HYPERTENSION, POA 6. HISTORY OF COPD, POA CHIEF COMPLAINT: Shortness of breath, nonproductive cough, body aches HPI: Patient is a 64-year-old male with past medical history significant for asthma, hypertension, GERD, coronary artery disease, PTSD, COPD, and a surgical history of right shoulder surgery, cholecystectomy, presented to emergency department complaining of worsening shortness of breath, nonproductive cough and body aches for two days. Patient reports that despite using his home nebulizer treatment, he has been experiencing worsening shortness of breath associated body aches. Today, patient decided come to emergency department for further evaluation and treatment. Patient denies any fever, chills, nausea, vomiting, diarrhea, chest pain, dysuria, dizziness, or any other symptoms. ABG performed in the emergency department shows PO2 of 67.1, lactic acid level of 2.1, magnesium of one point seven, screening for influenza type a antigen positive. In the emergency department, patient received Tamiflu 75 mg p.o., methylprednisone 125 mg IV, albuterol 3 mL nebulizer treatment. [facility] team has been consulted for asthma exacerbation, lactic acidosis, influenza A infection. PAST MEDICAL HX: see above PAST SURGICAL HX: noncontributory SOCIAL HISTORY: No tobacco, ETOH, or illicit drug use Coded Allergies: vancomycin (Unverified Allergy, Intermediate, SWELLING, 12/16/22) REVIEW OF SYSTEMS: 12 point ROS reviewed with patient. Pertinent positives mentioned above. Otherwise negative. PHYSICAL EXAM: GENERAL: alert, weak, awake oriented x 3 HEENT: EOMI, Sclera non icteric, moist mucosa NECK: Supple, no JVD, trachea midline LUNGS: DIMINISHED breath sounds bilaterally. No wheezes C IN 2 L NASAL CANNULA HEART: Regular rate and rhythm. Normal S1 and S2, without murmurs ABD: Abdomen soft, nontender. Bowel sounds present EXT: No clubbing cyanosis or edema NEURO: Alert and oriented to person, follows commands Vital Signs (last 8hr) Date Time Temp Pulse Resp B/P (MAP) Pulse Ox O2 Delivery O2 Flow Rate FiO2 02/05/25 15:42 100.4 107 23 125/65 97 Nasal Cannula* 2 28 02/05/25 13:37 115 24 02/05/25 13:04 100.4 116 26 156/84 97 Nasal Cannula 3.0 LABS: Hematology Labs: Test 02/05/25 13:21 Range/Units White Blood Count 7.8 4.8-10.8 K/uL Red Blood Count 5.09 4.50-6.20 MIL/uL Hemoglobin 15.3 14.0-18.0 g/dL Hematocrit 45.8 42-54 % Mean Corpuscular Volume 90.0 79-99 fL Mean Corpuscular Hemoglobin 30.1 27.0-33.0 pg Mean Corpuscular Hemoglobin Concent 33.4 32.0-36.0 g/dL Red Cell Distribution Width 13.2 11.0-15.5 % Platelet Count 227 130-400 K/uL Mean Platelet Volume 10.0 7.5-10.5 fL Nucleated Red Blood Cells 0.0 0.0-0.19 % Chemistry Labs: Test 02/05/25 13:21 Range/Units Sodium Level 140 136-145 mmol/L Potassium Level 3.5 3.5-5.1 mmol/L Chloride Level 104 101-111 mmol/L Carbon Dioxide Level 25 21-32 mmol/L Blood Urea Nitrogen 10 7-18 mg/dL Creatinine 1.3 0.5-1.3 mg/dL Glomerular Filtration Rate Calc 61 >90 mL/min Random Glucose 101 70-105 mg/dL Hemoglobin A1c 5.4 4.0-6.0 % Estimated Average Glucose (eAG) 108 70-126 mg/dL Lactic Acid Level 2.9 H 0.8-2.5 mmol/L Total Calcium 8.5 8.5-10.1 mg/dL Magnesium Level 1.70 L 1.80-2.40 mg/dL Troponin I High Sensitivity 8 4-75 ng/L B-Type Natriuretic Peptide 47 0-100 pg/mL Procalcitonin < 0.05 L 0.05-0.5 ng/mL Thyroid Stimulating Hormone (TSH) 0.59 # 0.36-3.74 uIU/mL DIAGNOSTICS / RADIOLOGY RESULTS: [ ] PLAN: CONTINUE TAMIFLU 75 MG P.O. B.I.D. CONTINUE OXYGEN SUPPLEMENTATION TO KEEP SATURATION ABOVE 92% CONTINUE NEBULIZER TREATMENT CONTINUE DOXYCYCLINE AND CEFEPIME FOR EMPIRIC ANTIBIOTIC COVERAGE OBTAIN BLOOD CULTURES FOR TEMPERATURE ABOVE 100.4 REPEAT ABG IN A.M. CONTINUE METHYLPREDNISONE 40 MG IV EVERY 8 HOURS CONTINUE CURRENT IV HYDRATION REPEAT LACTIC ACID LEVEL IN 6 HOURS CONTINUE CURRENT IV HYDRATION NEURO: Minimize central acting medications as possible. Maintain fall precautions, adequate lighting during the day PULMONARY: Supplemental 02 as needed. Maintain aspiration precautions at all times DUONEB Q.4H P.R.N. FOR SHORTNESS OF BREATHS OBTAIN SUPPLEMENTATION NEEDED KEEP SATURATION ABOVE 92% CARDIOVASCULAR: Follow hemodynamics. Vital signs per facility protocol GI & NUTRITION: Continue with nutritional support. Continue stool softeners and laxatives as needed. KIDNEYS & ELECTROLYTES: Strict monitoring of intake, output and overall fluid balance. Avoid nephrotoxic medications to the extent possible. Medications to be dosed according to renal function. Monitor electrolytes and replace as needed ENDOCRINE: Maintain blood glucose between 100-180 at all times. Hypoglycemia protocol in place INFECTIOUS DISEASE: Trend temperature, WBC and procalcitonin level Follow cultures, deescalate antibiotics as soon as possible. Panculture if new onset fever NORRIS OPINION DOXYCYCLINE FOR EMPIRIC ANTIBIOTIC COVERAGE ONCOLOGY/HEMATOLOGY/COAGULATION: Monitor for s/s of bleeding Monitor hemoglobin, coagulation studies as needed SKIN: Pressure ulcer prevention per facility protocol Specialty mattress ORTHO/REHAB: Continue PT/OT Prophylaxis: Continue GI and DVT prophylaxis Code Status: Full Resuscitation Disposition: TBD Other: Total patient care time exceeds 35 minutes excluding all procedures. CASE DISCUSSED WITH DR.SCHWARCZ RODRIGUEZ, AND THE ABOVE PLAN WAS FORMULATED. DILLON HAILE [facility] Feb 05, 2025 18:10
[2025-02-05] MEDS: BUDESONIDE 0.25 MG/2 ML INH IH SCH (19:02)
--- NOTE | 2025-02-05 20:00 | NUR ---
DROPLET PRECAUTIONS PATIENT ALERT AND ORIENTED TO TIME, PLACE AND SITUATION. DOES NOT APPEAR IN DISTRESS. IN SEMI-FOWLERS WITH REGULAR SYMMETRICAL RESPIRATIONS. PATIENT'S SIGNIFICANT OTHER AT BEDSIDE. EDUCATED SIGNIFICANT OTHER TO WEAR MASKS WHEN VISITING THE PATIENT AND PRACTICE HAND HYGIENE TO PREVENT SPREAD OF INFECTION. INSTRUCTED SIGNIFICANT OTHER OF THE LOCATIONS OF THE MASKS. SIGNIFICANT OTHER MADE AWARE OF DROPLET PRECAUTIONS AND IMPORTANCE OF ADHERING TO SUCH PRECAUTIONS.
[2025-02-05] MEDS: OSELTAMIVIR PHOSPHATE 75 MG CAP PO SCH (20:02)
[2025-02-05] MEDS: guaiFENesin-DM 200/20MG 10ML PO PRN (20:02)
[2025-02-05] MEDS: 0.9% NACL 500ML IV.SOLN 500 ML IV SCH (23:16)
[2025-02-06] VITALS (17 sets, daily range): BP systolic 119–140; BP diastolic 67–85; PULSE 75–100; RESP 16–24; TEMP 97.8–98.5; O2SAT 95–99
[2025-02-06] MEDS: Solu-medROL 40MG VIAL IVP SCH (01:12)
[2025-02-06 06:57] LABS: IMMATURE GRANULOCYTE ABSOLUTE 0.03 K/uL (0-1); NUCLEATED RED BLOOD CELLS 0.0 % (0.0-0.19); PLATELET COUNT (AUTO) 220 K/uL (130-400); RED BLOOD CELL COUNT(AUTO) 4.72 MIL/uL (4.50-6.20); RED CELL DISTRIBUTION WIDTH 13.1 % (11.0-15.5); WHITE BLOOD COUNT (AUTO) 5.6 K/uL (4.8-10.8)
[2025-02-06 07:10] LABS: ASPARTATE AMINOTRANSFERASE 20.0 U/L (10-37); CREATININE 1.2 mg/dL (0.5-1.3); GLOMERULAR FILTR. RATE CALC 68.0 mL/min (>90); GLUCOSE,RANDOM 155.0 mg/dL (70-105); SODIUM SERUM 140.0 mmol/L (136-145); TOTAL PROTEIN, SERUM 6.6 g/dL (6.0-8.3); UREA NITROGEN, BLOOD 14.0 mg/dL (7-18)
[2025-02-06] MEDS: DOXYCYCLINE 100MG+NS 250ML 250 ML IV SCH (09:10)
[2025-02-06] MEDS: THIAMINE HCL 100 MG/ML 2ML VIAL IVP SCH (09:10)
--- NOTE | 2025-02-06 09:34 | PN ---
[facility] PROGRESS NOTE Date Patient Seen: Feb 06, 2025 Time of Visit: 09:32 Supervising Physician: DR ZULEMA GONG Primary Care Physician: JERSON AUGUSTIN Outpatient Specialists: [ ] Inpatient Consults: [ ] PROBLEM LIST: ACUTE HYPOXIC RESPIRATORY FAILURE COPD EXACERBATION SEPSIS HYPERTENSION INFLUENZA A INTERVAL HISTORY: PATIENT WAS SEEN AND EXAMINED, PATIENT IS AWAKE ALERT AND ORIENTED NURSING REPORTS NO ACUTE EVENTS OVERNIGHT AFEBRILE GOOD SATURATIONS ON NASAL CANNULA 2 L POSITIVE FOR INFLUENZA A, STARTED ON TAMIFLU PLAN: SUPPLEMENTAL O2 TAMIFLU STEROIDS AND NEB TREATMENTS REVIEW OF SYSTEMS: 12 point ROS reviewed with patient. Pertinent positives mentioned above. Otherwise negative. PHYSICAL EXAM: GENERAL: alert, weak, awake oriented x 3 HEENT: EOMI, Sclera non icteric, moist mucosa NECK: Supple, no JVD, trachea midline LUNGS: DIMINISHED breath sounds bilaterally. No wheezes C IN 2 L NASAL CANNULA HEART: Regular rate and rhythm. Normal S1 and S2, without murmurs ABD: Abdomen soft, nontender. Bowel sounds present EXT: No clubbing cyanosis or edema NEURO: Alert and oriented to person, follows commands Vital Signs (last 8hr) Date Time Temp Pulse Resp B/P (MAP) Pulse Ox O2 Delivery O2 Flow Rate FiO2 02/06/25 08:13 98.1 99 20 140/85 94 Nasal Cannula 2.0 02/06/25 06:47 86 24 N/Cannula Low lpm 2.0 02/06/25 06:46 86 24 02/06/25 03:48 98.1 92 18 133/77 94 Nasal Cannula 2.0 02/06/25 01:50 99 24 LABS: Hematology Labs: Test 02/06/25 06:40 Range/Units White Blood Count 5.6 # 4.8-10.8 K/uL Red Blood Count 4.72 4.50-6.20 MIL/uL Hemoglobin 14.3 14.0-18.0 g/dL Hematocrit 42.1 42-54 % Mean Corpuscular Volume 89.2 79-99 fL Mean Corpuscular Hemoglobin 30.3 27.0-33.0 pg Mean Corpuscular Hemoglobin Concent 34.0 32.0-36.0 g/dL Red Cell Distribution Width 13.1 11.0-15.5 % Platelet Count 220 130-400 K/uL Mean Platelet Volume 11.0 H 7.5-10.5 fL Immature Granulocyte % (Auto) 0.5 0-1 % Neutrophils (%) (Auto) 91.0 H 40.0-77.0 % Lymphocytes (%) (Auto) 5.6 L 21.0-51.0 % Monocytes (%) (Auto) 2.7 L 3.0-13.0 % Eosinophils (%) (Auto) 0.0 0.0-8.0 % Basophils (%) (Auto) 0.2 0.0-5.0 % Neutrophils # (Auto) 5.1 1.8-7.7 K/uL Lymphocytes # (Auto) 0.3 L 1.0-4.8 K/uL Monocytes # (Auto) 0.2 0.1-1.0 K/uL Eosinophils # (Auto) 0.00 0.00-0.70 K/uL Basophils # (Auto) 0.01 0.00-0.20 K/uL Absolute Immature Granulocyte (auto 0.03 0-1 K/uL Nucleated Red Blood Cells 0.0 0.0-0.19 % White Cell Morphology Comment See comments Chemistry Labs: Test 02/06/25 08:30 02/06/25 06:40 02/05/25 13:21 Range/Units Lactic Acid Level 2.0 0.8-2.5 mmol/L Sodium Level 140 136-145 mmol/L Potassium Level 3.9 3.5-5.1 mmol/L Chloride Level 106 101-111 mmol/L Carbon Dioxide Level 21 21-32 mmol/L Blood Urea Nitrogen 14 7-18 mg/dL Creatinine 1.2 0.5-1.3 mg/dL Glomerular Filtration Rate Calc 68 >90 mL/min Random Glucose 155 #H 70-105 mg/dL Total Calcium 8.4 L 8.5-10.1 mg/dL Magnesium Level 1.80 1.80-2.40 mg/dL Total Bilirubin 0.2 0.2-1.0 mg/dL Aspartate Amino Transf (AST/SGOT) 20 10-37 U/L Alanine Aminotransferase (ALT/SGPT) 34 12-78 U/L Alkaline Phosphatase 76 50-136 U/L Total Protein 6.6 6.0-8.3 g/dL Albumin 3.3 L 3.5-5.0 g/dL Hemoglobin A1c 5.4 4.0-6.0 % Estimated Average Glucose (eAG) 108 70-126 mg/dL Troponin I High Sensitivity 8 4-75 ng/L B-Type Natriuretic Peptide 47 0-100 pg/mL Procalcitonin < 0.05 L 0.05-0.5 ng/mL Thyroid Stimulating Hormone (TSH) 0.59 # 0.36-3.74 uIU/mL DIAGNOSTICS / RADIOLOGY RESULTS: [ ] PLAN: NEURO: Minimize central acting medications as possible. Maintain fall precautions, adequate lighting during the day PULMONARY: Supplemental 02 as needed. Maintain aspiration precautions at all times DUONEB Q.4H P.R.N. FOR SHORTNESS OF BREATHS OBTAIN SUPPLEMENTATION NEEDED KEEP SATURATION ABOVE 92% CARDIOVASCULAR: Follow hemodynamics. Vital signs per facility protocol GI & NUTRITION: Continue with nutritional support. Continue stool softeners and laxatives as needed. KIDNEYS & ELECTROLYTES: Strict monitoring of intake, output and overall fluid balance. Avoid nephrotoxic medications to the extent possible. Medications to be dosed according to renal function. Monitor electrolytes and replace as needed ENDOCRINE: Maintain blood glucose between 100-180 at all times. Hypoglycemia protocol in place INFECTIOUS DISEASE: Trend temperature, WBC and procalcitonin level Follow cultures, deescalate antibiotics as soon as possible. Panculture if new onset fever NORRIS OPINION DOXYCYCLINE FOR EMPIRIC ANTIBIOTIC COVERAGE ONCOLOGY/HEMATOLOGY/COAGULATION: Monitor for s/s of bleeding Monitor hemoglobin, coagulation studies as needed SKIN: Pressure ulcer prevention per facility protocol Specialty mattress ORTHO/REHAB: Continue PT/OT Prophylaxis: Continue GI and DVT prophylaxis Code Status: Full Resuscitation Disposition: GATO TRIVEDI PAC Feb 06, 2025 09:34
[2025-02-06] MEDS: SODIUM CHLORIDE 3% FOR INHALATION 4 ML/AMP VIAL.NEB IH ONE (10:36)
--- NOTE | 2025-02-06 14:09 | PN ---
[facility] PROGRESS NOTE Date of Service: Feb 06, 2025 Time of Service: 13:58 SUBJECTIVE: [Patient evaluated this morning with family at bedside. He was admitted for acute hypoxemic respiratory failure secondary to influenza A infection and COPD/asthma exacerbation. Initially required 4 L O? via nasal cannula; now on 2 L with stable saturations. Patient able to speak in full sentences without dyspnea or cough paroxysms. Denies chest pain, nausea, vomiting, or new symptoms. Reports improved shortness of breath. No acute events overnight per nursing. ] OBJECTIVE: General: Awake, alert, oriented x3, conversant, no acute distress Vital Signs: Temp: 98.1F HR: 99 RR: 20 BP: 140/85 SpO?: 94% on 2 L NC HEENT: EOMI, sclera non-icteric, moist mucosa Neck: Supple, no JVD, trachea midline Lungs: Diminished breath sounds bilaterally, no wheezes, no rales, no increased work of breathing Heart: RRR, normal S1/S2, no murmurs Abdomen: Soft, nontender, nondistended, normal bowel sounds Extremities: No edema, cyanosis, or clubbing Neuro: Alert, oriented, follows commands Labs: WBC: 5.6 Hgb: 14.3 Plt: 220 Lactic acid: 2.0 (improved from 2.9) Creatinine: 1.2 M.8 (corrected) Procalcitonin: <0.05 CXR: No acute infiltrates Influenza A: Positive Pro-BNP, troponin: WNL REVIEW OF SYSTEMS CONSTITUTIONAL: Denies fevers, chills, or night sweats. No unintentional weight loss reported. NEUROLOGICAL: Denies headache, amaurosis fugax, motor weakness, sensory deficit, vertigo/spinning sensation, gait abnormalities, or tremors. ENT: No hearing loss, otalgia, otorrhea, rhinitis, rhinorrhea, hoarseness, or sore throat. CARDIOVASCULAR: Denies any exertional angina, dyspnea on exertion, orthopnea, paroxysmal nocturnal dyspnea, palpitations, life-threatening arrhythmias, claudication. PULMONARY: Positive for cough, shortness of breath. Denied any sputum production, hemoptysis. SLEEP: Denies morning headaches, daytime somnolence or napping. Denies difficulty falling asleep, staying asleep, waking from sleep. Denies knowledge of snoring. GASTROINTESTINAL: Denies any type of dysphagia to either liquids or solids. Denies nausea, vomiting, pyrosis, early satiety, abdominal pain, diarrhea, constipation, or changes in stool consistency or caliber. Denies coffee-ground emesis, hematemesis, hematochezia, or melanotic stools. GENITOURINARY: Denies frequency, urgency, nocturia, hematuria or incontinence (Storage/Irritative symptoms.) Low urinary stream, straining to void, urinary intermittency or hesitancy, splitting of the voiding stream, terminal dribbling. ENDOCRINOLOGIC: Denies polyuria, polydipsia, polyphagia or heat/cold intolerances. HEMATOLOGIC: Denies thrombophilia/previous clots, or coagulopathy/bleeding disorders. ONCOLOGIC: Denies personal history of malignancy. DERMATOLOGIC: Denies rashes or pruritus. PSYCHIATRIC: Denies any suicidal or homicidal ideation. Denies hallucinations. PHYSICAL EXAM GENERAL APPEARANCE: The patient is awake, alert, and oriented, in no acute cardiopulmonary distress. NEUROLOGICAL: Cranial nerves II-XII grossly intact. Motor is 5/5 in bilateral upper and lower extremities proximal to distal. No sensory deficits. HEENT: Face is symmetric. Pupils are equal and reactive. Extraocular movements are intact. NECK: Supple. No JVD. No thyromegaly. No submental, submandibular, pre- /postauricular, occipital or supraclavicular lymphadenopathy. CHEST: Expiratory wheezing present with decreased breath sounds bilaterally LUNGS: Absence of any rales, rhonchi or any wheezing. CARDIOVASCULAR: Regular. S1 and S2 normal. No appreciable rubs, murmurs or g allops. ABDOMEN: Soft, nontender, and nondistended. There is no rebound, voluntary gua rding, or rigidity. : Deferred. No Mont[place]. EXTREMITIES: Non-edematous and not cyanotic. No clubbing. Good capillary refill. SKIN: No skin breakdown. Vital Signs (last 8hr) Date Time Temp Pulse Resp B/P (MAP) Pulse Ox O2 Delivery O2 Flow Rate FiO2 02/06/25 11:57 97.9 75 18 119/72 95 Room Air 02/06/25 11:19 100 20 N/A Room Air 21 02/06/25 10:40 92 20 N/Cannula Low lpm 2.0 02/06/25 10:39 90 20 02/06/25 08:13 98.1 99 20 140/85 94 Nasal Cannula 2.0 02/06/25 08:00 Nasal Cannula* 2 28 02/06/25 06:47 86 24 N/Cannula Low lpm 2.0 02/06/25 06:46 86 24 LABS: Laboratory: Test 02/06/25 08:30 02/06/25 06:40 02/05/25 13:33 02/05/25 13:30 Range/Units Lactic Acid Level 2.0 0.8-2.5 mmol/L White Blood Count 5.6 # 4.8-10.8 K/uL Red Blood Count 4.72 4.50-6.20 MIL/uL Hemoglobin 14.3 14.0-18.0 g/dL Hematocrit 42.1 42-54 % Mean Corpuscular Volume 89.2 79-99 fL Mean Corpuscular Hemoglobin 30.3 27.0-33.0 pg Mean Corpuscular Hemoglobin Concent 34.0 32.0-36.0 g/dL Red Cell Distribution Width 13.1 11.0-15.5 % Platelet Count 220 130-400 K/uL Mean Platelet Volume 11.0 H 7.5-10.5 fL Immature Granulocyte % (Auto) 0.5 0-1 % Neutrophils (%) (Auto) 91.0 H 40.0-77.0 % Lymphocytes (%) (Auto) 5.6 L 21.0-51.0 % Monocytes (%) (Auto) 2.7 L 3.0-13.0 % Eosinophils (%) (Auto) 0.0 0.0-8.0 % Basophils (%) (Auto) 0.2 0.0-5.0 % Neutrophils # (Auto) 5.1 1.8-7.7 K/uL Lymphocytes # (Auto) 0.3 L 1.0-4.8 K/uL Monocytes # (Auto) 0.2 0.1-1.0 K/uL Eosinophils # (Auto) 0.00 0.00-0.70 K/uL Basophils # (Auto) 0.01 0.00-0.20 K/uL Absolute Immature Granulocyte (auto 0.03 0-1 K/uL Nucleated Red Blood Cells 0.0 0.0-0.19 % White Cell Morphology Comment See comments Sodium Level 140 136-145 mmol/L Potassium Level 3.9 3.5-5.1 mmol/L Chloride Level 106 101-111 mmol/L Carbon Dioxide Level 21 21-32 mmol/L Blood Urea Nitrogen 14 7-18 mg/dL Creatinine 1.2 0.5-1.3 mg/dL Glomerular Filtration Rate Calc 68 >90 mL/min Random Glucose 155 #H 70-105 mg/dL Total Calcium 8.4 L 8.5-10.1 mg/dL Magnesium Level 1.80 1.80-2.40 mg/dL Total Bilirubin 0.2 0.2-1.0 mg/dL Aspartate Amino Transf (AST/SGOT) 20 10-37 U/L Alanine Aminotransferase (ALT/SGPT) 34 12-78 U/L Alkaline Phosphatase 76 50-136 U/L Total Protein 6.6 6.0-8.3 g/dL Albumin 3.3 L 3.5-5.0 g/dL Blood Gas Specimen Type Arterial Arterial Blood pH 7.435 7.350-7.450 Arterial Blood Partial Pressure CO2 28 L 35-48 mmHg Arterial Blood Partial Pressure O2 67.1 L 83.0-108.0 mmHg Arterial Blood HCO3 18.6 L 21.0-28.0 mmol/L Arterial Blood Oxygen Saturation 94.4 94.0-98.0 % Arterial Blood Base Excess -4.3 L -2.0-3.0 mmol/L Hemoglobin (Blood Gas) 13.4 L 13.5-17.5 g/dL Sodium (Blood Gas) 138 136-145 MMOL/L Bedside Potassium (Blood Gas) 3.7 3.4-4.5 MMOL/L Bedside Chloride (Blood Gas) 106 98-107 MMOL/L Bedside Glucose (Blood Gas) 93 65-95 MG/DL Bedside Ionized Calcium (Blood Gas) 1.11 L 1.15-1.33 MMOL/L Bedside Lactic Acid (Blood Gas) 2.10 H 0.36-0.75 MMOL/L Blood Gas Temperature 37.0 35.5-37.0 CELSIUS Blood Gas Flow-by 3.00 0.00-15.00 L/min Blood Gas Vent Mode NC ROOM AIR FiO2 32.0 % Blood Gas Specimen Comment RR RN LUPE Influenza Type A Antigen Positive For Type A *A NEGATIVE Influenza Type B Antigen Negative For Type B NEGATIVE SARS-CoV-2 Antigen (Rapid) PRESUMPTIVE NEGATIVE NEGATIVE Test 02/05/25 13:21 Range/Units Hemoglobin A1c 5.4 4.0-6.0 % Estimated Average Glucose (eAG) 108 70-126 mg/dL Troponin I High Sensitivity 8 4-75 ng/L B-Type Natriuretic Peptide 47 0-100 pg/mL Procalcitonin < 0.05 L 0.05-0.5 ng/mL Thyroid Stimulating Hormone (TSH) 0.59 # 0.36-3.74 uIU/mL Current Medications Medications (Trade) Dose Ordered Sig/Mehran Route PRN Reason Start Time Stop Time Status Last Admin Dose Admin Acetaminophen (TYLenol 500MG TAB) 500 mg Q6H PRN PO MILD PAIN (1-3) 02/05/25 15:00 03/07/25 14:59 02/05/25 20:03 500 MG Albuterol (DUOneb) 1 UDVIAL Q4H PRN IH SHORTNESS OF BREATH 02/05/25 15:00 03/07/25 14:59 02/06/25 10:36 1 UDVIAL Budesonide (Pulmicort 0.25mg/2ml) 0.25 mg BIDRESP IH 02/05/25 20:00 03/07/25 19:59 02/06/25 06:43 0.25 MG Budesonide (Pulmicort 0.5 Mg/2ml) 0.5 mg ONCE STAT IH 02/05/25 13:08 02/05/25 13:14 DC 02/05/25 13:37 0.5 MG Cefepime HCl (MAXipime 1 GM vial) 1 gm Q12H IVPB 02/05/25 15:30 02/15/25 15:29 02/06/25 03:13 1 GM Doxycycline Hyclate 250 ml @ 125 mls/hr Q12H IV 02/05/25 15:00 02/06/25 01:42 DC 02/05/25 15:42 125 MLS/HR Doxycycline Hyclate 250 ml @ 125 mls/hr Q12H IV 02/06/25 09:00 02/16/25 08:59 02/06/25 09:10 125 MLS/HR Famotidine (Pepcid 20mg Vial) 20 mg DAILY IV 02/05/25 16:00 03/07/25 15:59 02/06/25 09:09 20 MG Folic Acid (FOLic ACID 1 MG TABLET) 1 mg DAILY PO 02/06/25 09:00 03/08/25 08:59 02/06/25 09:09 1 MG Guaifenesin/ Dextromethorphan (RobiTUSSin DM 200/20MG 10ML) 10 ml Q6H PRN PO COUGH 02/05/25 15:00 03/07/25 14:59 02/05/25 20:02 10 ML Magnesium Sulfate 50 ml @ 0 mls/hr PROTOCOL IV 02/05/25 14:00 03/07/25 13:59 Methylprednisolone Sodium Succinate (Solu-medROL 40MG) 40 mg Q8H IVP 02/06/25 01:00 03/08/25 00:59 02/06/25 09:09 40 MG Methylprednisolone Sodium Succinate (Solu-medROL 40MG) 60 mg Q8H IVP 02/05/25 17:00 02/05/25 18:05 DC Oseltamivir Phosphate (Tamiflu) 75 mg BID PO 02/05/25 21:00 02/10/25 20:59 02/06/25 09:09 75 MG Sodium Chloride 500 ml @ 0 mls/hr Q0M IV 02/05/25 22:45 02/05/25 23:55 DC 02/05/25 23:16 500 MLS/HR Sodium Chloride 1,000 ml @ 100 mls/hr Q10H IV 02/05/25 15:00 03/07/25 14:59 02/05/25 15:42 100 MLS/HR Thiamine HCl (Vitamin B-1) 100 mg DAILY IVP 02/06/25 09:00 03/08/25 08:59 02/06/25 09:10 100 MG DIAGNOSTICS / RADIOLOGY: [ ] ASSESSMENT: Acute hypoxemic respiratory failure secondary to influenza A and COPD/asthma exacerbation, improving on supplemental O? and medical therapy Influenza A infection on antiviral therapy COPD/asthma exacerbation on steroids and bronchodilators Sepsis secondary to viral infection, improving; lactic acid trending down Hypertension stable Hypomagnesemia corrected History of PTSD, GERD, hyperlipidemia stable PLAN: - Respiratory: - Continue supplemental O? to maintain SpO? >92%; wean as tolerated - Continue Duoneb (albuterol/ipratropium) q4h and PRN - Monitor for increased work of breathing or respiratory fatigue - Pulmonary hygiene, incentive spirometry - Infectious Disease: - Continue Tamiflu 75 mg PO BID x 5 days total - Continue empiric antibiotics (cefepime + doxycycline) pending cultures; reassess need in 48 hours if no evidence of bacterial infection (procalcitonin low, CXR clear) - Monitor for new fever, repeat cultures if indicated - Steroids: - Continue methylprednisolone 40 mg IV q8h; consider taper as clinical status improves - Sepsis/Lactic Acidosis: - Monitor for clinical improvement; lactic acid improved, continue to trend - Maintain IV fluids for gentle hydration; monitor for volume overload - Electrolytes/Renal: - Monitor and replace electrolytes as needed - Continue to monitor renal function, avoid nephrotoxins - GI: - Continue GI prophylaxis (Pepcid) - Thiamine and folic acid supplementation - Stool softeners/laxatives as needed - DVT Prophylaxis: - Continue per protocol - Skin: - Pressure ulcer prevention, specialty mattress - Neuro: - Fall precautions, minimize centrally acting medications - Disposition: - Continue monitoring in P[facility]U - Anticipate transfer to lower level of care as respiratory status stabilizes - Code Status: - Full resuscitation Case discussed with attending physician, above plan was formulated ATTESTATION BY PHYSICIAN I have seen and examined the patient. I reviewed the documentation, medical decision making, and treatment plan as noted by the mid-level provider above. I agree with the findings and plan of care. SCOTT GUERRERO MD, [facility] Feb 06, 2025 14:08
--- NOTE | 2025-02-06 15:00 | EKG ---
[facility] Test Date: 2025-02-05 Test Time: 13:01:21 Pat Name: RUDOLPH ANTHONY Department: 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
--- NOTE | 2025-02-06 17:01 | NUR ---
DC PLAN VISITED WITH PATIENT. PATIENT LIVES WITH GIRLFRIEND AND MOM. INDEPENDENT ABLE TO PERFORM ADL'S. PATIENT HAS NO SERVICES. ONLY NEBULIZER. PLAN TO RETURN HOME. Addendum: 02/06/25 at 1704 by OTILIA STERN RN CM Amended: Links added.
[2025-02-07 00:03] VITALS: BP 141/90; PULSE 101; RESP 20; TEMP 98.2
[2025-02-07 03:58] VITALS: BP 137/77; PULSE 85; RESP 20; TEMP 98
[2025-02-07 04:08] LABS: IMMATURE GRANULOCYTE ABSOLUTE 0.12 K/uL (0-1); NUCLEATED RED BLOOD CELLS 0.0 % (0.0-0.19); PLATELET COUNT (AUTO) 225 K/uL (130-400); RED BLOOD CELL COUNT(AUTO) 4.67 MIL/uL (4.50-6.20); RED CELL DISTRIBUTION WIDTH 13.5 % (11.0-15.5); WHITE BLOOD COUNT (AUTO) 21.2 K/uL (4.8-10.8)
[2025-02-07 04:33] LABS: ASPARTATE AMINOTRANSFERASE 19.0 U/L (10-37); CREATININE 1.4 mg/dL (0.5-1.3); GLOMERULAR FILTR. RATE CALC 56.0 mL/min (>90); GLUCOSE,RANDOM 151.0 mg/dL (70-105); SODIUM SERUM 140.0 mmol/L (136-145); TOTAL PROTEIN, SERUM 6.3 g/dL (6.0-8.3); UREA NITROGEN, BLOOD 20.0 mg/dL (7-18)
--- NOTE | 2025-02-07 05:30 | NUR ---
REPORT PATIENT ALERT AND ORIENTED TO TIME, PLACE, AND SITUATION. APPEARS IN NO DISTRESS. GAVE REPORT TO NURSE MAHSA. 0600 PATIENT APPEARS IN NO DISTRESS DURING TRANSFER TO 3RD FLOOR. PCT ROLANDO RECEIVED THE PATIENT AND AT BEDSIDE WITH THE PATIENT.
[2025-02-07 06:52] VITALS: PULSE 88; RESP 16; O2SAT 98
[2025-02-07 06:53] VITALS: PULSE 88; RESP 20
[2025-02-07 08:00] VITALS: BP 143/83; PULSE 66; RESP 19; TEMP 97.9; O2SAT 95
--- NOTE | 2025-02-07 09:51 | PN ---
[facility] PROGRESS NOTE Date Patient Seen: Feb 07, 2025 Time of Visit: 09:51 Supervising Physician: Dr. Paniagua Primary Care Physician: JERSON AUGUSTIN Outpatient Specialists: [ ] Inpatient Consults: [ ] PROBLEM LIST: ACUTE HYPOXIC RESPIRATORY FAILURE COPD EXACERBATION SEPSIS HYPERTENSION INFLUENZA A INTERVAL HISTORY: Patient evaluated at bedside today. He is currently on room air. He feels well. Patient has been ambulating independently with physical therapy. He currently continues on cefepime, doxycycline, and Tamiflu, as well as solumedrol, 40 Q8 hours. Patient's white count today is 21.2. However, this is likely secondary to the patient's steroids. At this time, primary is considering discharge for the patient. We will continue to follow while the patient remains admitted to the med floor, but from a pulmonary standpoint patient has a cleared to discharge and complete his treatment on oral medication. Recommendation to follow up at [facility] in two weeks for evaluation of patient's Chronic obstructive pulmonary disease maintenance medications. PLAN Continue antibiotics Continue Tamiflu Taper steroids Patient is cleared for discharge to complete antibiotic regimen and Tamiflu at home REVIEW OF SYSTEMS: 12 point ROS reviewed with patient. Pertinent positives mentioned above. Otherwise negative. PHYSICAL EXAM: GENERAL: alert, weak, awake oriented x 3 HEENT: EOMI, Sclera non icteric, moist mucosa NECK: Supple, no JVD, trachea midline LUNGS: DIMINISHED breath sounds bilaterally. No wheezes C IN 2 L NASAL CANNULA HEART: Regular rate and rhythm. Normal S1 and S2, without murmurs ABD: Abdomen soft, nontender. Bowel sounds present EXT: No clubbing cyanosis or edema NEURO: Alert and oriented to person, follows commands Vital Signs (last 8hr) Date Time Temp Pulse Resp B/P (MAP) Pulse Ox O2 Delivery O2 Flow Rate FiO2 02/07/25 08:00 97.9 66 19 143/83 95 Room Air 02/07/25 06:53 88 20 02/07/25 06:52 88 16 N/A Room Air 21 02/07/25 06:10 Room Air* 0 21 02/07/25 03:58 98.1 85 20 137/77 963 Room Air LABS: Hematology Labs: Test 02/07/25 03:49 02/06/25 06:40 Range/Units White Blood Count 21.2 #H 4.8-10.8 K/uL Red Blood Count 4.67 4.50-6.20 MIL/uL Hemoglobin 14.0 14.0-18.0 g/dL Hematocrit 42.4 42-54 % Mean Corpuscular Volume 90.8 79-99 fL Mean Corpuscular Hemoglobin 30.0 27.0-33.0 pg Mean Corpuscular Hemoglobin Concent 33.0 32.0-36.0 g/dL Red Cell Distribution Width 13.5 11.0-15.5 % Platelet Count 225 130-400 K/uL Mean Platelet Volume 10.2 7.5-10.5 fL Immature Granulocyte % (Auto) 0.6 0-1 % Neutrophils (%) (Auto) 92.6 H 40.0-77.0 % Lymphocytes (%) (Auto) 3.6 L 21.0-51.0 % Monocytes (%) (Auto) 3.1 3.0-13.0 % Eosinophils (%) (Auto) 0.0 0.0-8.0 % Basophils (%) (Auto) 0.1 0.0-5.0 % Neutrophils # (Auto) 19.6 H 1.8-7.7 K/uL Lymphocytes # (Auto) 0.8 L 1.0-4.8 K/uL Monocytes # (Auto) 0.7 0.1-1.0 K/uL Eosinophils # (Auto) 0.00 0.00-0.70 K/uL Basophils # (Auto) 0.02 0.00-0.20 K/uL Absolute Immature Granulocyte (auto 0.12 0-1 K/uL Nucleated Red Blood Cells 0.0 0.0-0.19 % White Cell Morphology Comment See comments Chemistry Labs: Test 02/07/25 03:49 02/06/25 08:30 02/05/25 13:21 Range/Units Sodium Level 140 136-145 mmol/L Potassium Level 4.0 3.5-5.1 mmol/L Chloride Level 105 101-111 mmol/L Carbon Dioxide Level 23 21-32 mmol/L Blood Urea Nitrogen 20 H 7-18 mg/dL Creatinine 1.4 H 0.5-1.3 mg/dL Glomerular Filtration Rate Calc 56 >90 mL/min Random Glucose 151 H 70-105 mg/dL Total Calcium 8.0 L 8.5-10.1 mg/dL Magnesium Level 1.80 1.80-2.40 mg/dL Total Bilirubin 0.2 0.2-1.0 mg/dL Aspartate Amino Transf (AST/SGOT) 19 10-37 U/L Alanine Aminotransferase (ALT/SGPT) 28 12-78 U/L Alkaline Phosphatase 69 50-136 U/L Total Protein 6.3 6.0-8.3 g/dL Albumin 3.0 L 3.5-5.0 g/dL Lactic Acid Level 2.0 0.8-2.5 mmol/L Hemoglobin A1c 5.4 4.0-6.0 % Estimated Average Glucose (eAG) 108 70-126 mg/dL Troponin I High Sensitivity 8 4-75 ng/L B-Type Natriuretic Peptide 47 0-100 pg/mL Procalcitonin < 0.05 L 0.05-0.5 ng/mL Thyroid Stimulating Hormone (TSH) 0.59 # 0.36-3.74 uIU/mL DIAGNOSTICS / RADIOLOGY RESULTS: [ ] PLAN: NEURO: Minimize central acting medications as possible. Maintain fall precautions, adequate lighting during the day PULMONARY: Supplemental 02 as needed. Maintain aspiration precautions at all times DUONEB Q.4H P.R.N. FOR SHORTNESS OF BREATHS OBTAIN SUPPLEMENTATION NEEDED KEEP SATURATION ABOVE 92% CARDIOVASCULAR: Follow hemodynamics. Vital signs per facility protocol GI & NUTRITION: Continue with nutritional support. Continue stool softeners and laxatives as needed. KIDNEYS & ELECTROLYTES: Strict monitoring of intake, output and overall fluid balance. Avoid nephrotoxic medications to the extent possible. Medications to be dosed according to renal function. Monitor electrolytes and replace as needed ENDOCRINE: Maintain blood glucose between 100-180 at all times. Hypoglycemia protocol in place INFECTIOUS DISEASE: Trend temperature, WBC and procalcitonin level Follow cultures, deescalate antibiotics as soon as possible. Panculture if new onset fever NORRIS OPINION DOXYCYCLINE FOR EMPIRIC ANTIBIOTIC COVERAGE ONCOLOGY/HEMATOLOGY/COAGULATION: Monitor for s/s of bleeding Monitor hemoglobin, coagulation studies as needed SKIN: Pressure ulcer prevention per facility protocol Specialty mattress ORTHO/REHAB: Continue PT/OT Prophylaxis: Continue GI and DVT prophylaxis Code Status: Full Resuscitation Disposition: DIANE VILLAREAL PAC Feb 07, 2025 09:51
[2025-02-07 12:00] VITALS: BP 140/73; PULSE 79; RESP 18; TEMP 97.9
--- NOTE | 2025-02-07 12:53 | DS ---
Discharge Summary Hospital Course Summary: The patient admitted to the hospital February 05, 2025 with the following history of the present illness: This is a 64-year-old male with past medical history of asthma/COPD, PTSD who presented to the hospital secondary to shortness of breath, cough. Patient states his symptoms started yesterday. Patient's father recently and he was in a gathering yesterday. He has been having fever with associated cough at home. He feels his cough is dry in nature. He denies any chest pain, abdominal pain, nausea, vomiting. Taking deep breaths causes his cough to get worse. Denied any falls, syncopal episode. Denied any changes in his bowel movement. He used albuterol multiple times at home without improvement in his shortness of breath. Has not followed up with a rn new graduate as outpatient Secondary to non improving symptoms patient thereafter came to the hospital for further evaluation Labs were notable for white count of 7.8, hemoglobin was 15.3, platelet count was 227 K, sodium was 140, potassium was 3.5, creatinine was 1.3, lactic acid was 2.9, magnesium was 1.7, troponin was negative x1 Chest x-ray showed no acute infiltrates Patient was noted to be positive for influenza A Patient received albuterol, methylprednisolone in the ER. Presentation to the ER patient's temperature was 100.4, heart rate was 1 one six, respiratory rate was 26, blood pressure was 156/84, patient was saturating 97% on 3 L nasal cannula HOSPITAL COURSE 02/06 Patient evaluated this morning with family at bedside. He was admitted for acute hypoxemic respiratory failure secondary to influenza A infection and COPD/asthma exacerbation. Initially required 4 L O? via nasal cannula; now on 2 L with stable saturations. Patient able to speak in full sentences without dyspnea or cough paroxysms. Denies chest pain, nausea, vomiting, or new symptoms. Reports improved shortness of breath. No acute events overnight per nursing. ] 02/07 patient alert oriented x3, hemodynamically stable, afebrile, saturating normal on room air, denies chest pain, shortness shortness for breath, no cough, no nausea, no vomiting, no abdominal pain, discussed with the Pulmonary physician, patient cleared to be discharged home today. PHYSICAL EXAM GENERAL APPEARANCE: The patient is awake, alert, and oriented, in no acute cardiopulmonary distress. NEUROLOGICAL: Cranial nerves II-XII grossly intact. Motor is 5/5 in bilateral upper and lower extremities proximal to distal. No sensory deficits. HEENT: Face is symmetric. Pupils are equal and reactive. Extraocular movements are intact. NECK: Supple. No JVD. No thyromegaly. No submental, submandibular, pre- /postauricular, occipital or supraclavicular lymphadenopathy. CHEST: Expiratory wheezing present with decreased breath sounds bilaterally LUNGS: Absence of any rales, rhonchi or any wheezing. CARDIOVASCULAR: Regular. S1 and S2 normal. No appreciable rubs, murmurs or gallops. ABDOMEN: Soft, nontender, and nondistended. There is no rebound, voluntary guarding, or rigidity. : Deferred. No [place]. EXTREMITIES: Non-edematous and not cyanotic. No clubbing. Good capillary refill. SKIN: No skin breakdown. Purchase Order Checker(s): Pulmonary Services Assessment/Plan: Final Diagnosis Acute hypoxemic respiratory failure secondary to influenza A and COPD/asthma exacerbation, improving on supplemental O? and medical therapy Influenza A infection on antiviral therapy COPD/asthma exacerbation on steroids and bronchodilators Sepsis secondary to viral infection, improving; lactic acid trending down Hypertension stable Hypomagnesemia corrected History of PTSD, GERD, hyperlipidemia stable Discharge Instructions: The patient to follow up with primary care physician as an outpatient, return to the hospital if condition changes, patient agreed with the plan and understood the information provided. Home Medications: Discontinued Reported Medications Amoxicillin/Potassium Clav (Amox Tr-K Clv 875-125 mg Tab) 875 Mg-125 Mg Tablet, 1 TAB PO BID for 10 Days, #20 TAB 0 Refills 2/25/25 Guaifenesin (Guaifenesin) 400 Mg Tablet, 600 MG PO BID PRN for COUGH/COLD SYMPTOMS, TAB 2/25/25 Albuterol Sulfate (Ventolin Hfa) 90 Mcg Hfa.aer.ad, 2 PUFF IH Q4HPRN PRN for wheezing for 30 Days, #18 GM 0 Refills 2/25/25 Prednisone (Prednisone) 10 Mg Tab.ds.pk, 1 TAB PO DAILY for 5 Days, #21 TAB 0 Refills 2/25/25 Rosuvastatin Calcium (Rosuvastatin Calcium) 40 Mg Tablet, 1 TAB PO DAILY for high cholesterol for 30 Days, #30 TAB 0 Refills 2/25/25 Venlafaxine HCl (Venlafaxine HCl) 75 Mg Tablet, 75 MG PO DAILY, TAB 04/27/24 Ipratropium/Albuterol Sulfate (Combivent Respimat Inhal [place]) 20 Mcg-100 Mcg/Actuation Aer.w.adap, 4 GM IH Q2HPRN PRN for SHORTNESS OF BREATH/WHEEZING 12/10/22 Bupropion HCl (Bupropion HCl) 100 Mg Tablet, 300 MG PO DAILY, TAB 12/10/22 Sertraline HCl (Sertraline HCl) 100 Mg Tablet, 100 MG PO DAILY, TAB 12/10/22 Montelukast Sodium (Montelukast Sodium) 10 Mg Tablet, 10 MG PO HS, TAB 12/10/22 Omeprazole (Omeprazole) 20 Mg Tablet.dr, 20 MG PO DAILY, TAB 12/10/22 Folic Acid (Folvite) 1 Mg Tab, 1 MG PO DAILY, TAB 12/10/22 Sildenafil Citrate (Viagra) 100 Mg Tablet, 100 MG PO AD for ERECTILE DYSFUNCTION, TAB 12/10/22 Trazodone HCl (Trazodone HCl) 50 Mg Tablet, 50 MG PO HS, TAB 12/10/22 Gabapentin (Gabapentin) 100 Mg Capsule, 100 MG PO TID, CAP 12/10/22 Lisinopril (Lisinopril) 5 Mg Tablet, 2.5 MG PO DAILY, TAB 12/10/22 Cetirizine HCl (Cetirizine HCl) 10 Mg Tablet, 10 MG PO DAILY, TAB 12/10/22 Fluticasone Propionate (Flonase Nasal [place]) 50 Mcg/Actuation [place], 50 MCG NASAL HS, SPRAY 12/10/22 Ipratropium/Albuterol Sulfate (Iprat-Albut 0.5-3(2.5) mg/3 ml) 0.5 Mg-3 Mg (2.5 Mg Base)/3 Ml Ampul.neb, 3 ML IH QIDP PRN for SHORTNESS OF BREATH/WHEEZING 12/10/22 Discontinued Scripts Losartan Potassium (Cozaar) 50 Mg Tablet, 50 MG PO BID, #60 TAB 0 Refills Prov:JOAQUIN ZELAYA AGACNP 12/18/22 Guaifenesin/Codeine Phos (Guaifenesin-Codeine Syrup) 10 Mg-100 Mg/5 Ml (5 Ml) Liq, 10 ML PO Q4H PRN for COUGH/COLD SYMPTOMS, #280 ML 0 Refills Prov:JOAQUIN ZELAYA 12/18/22 Cefuroxime Axetil (Cefuroxime) 500 Mg Tablet, 500 MG PO BID, #10 TAB 0 Refills Prov:JOAQUIN ZELAYAPetey 12/18/22 Prednisone (Prednisone) 20 Mg Tablet, 40 MG PO DAILY, #5 TAB 0 [facility] 12/18/22 Time spent arranging discharge: 31-60 minutes CYNTHIA KEEN MD Feb 07, 2025 12:53
--- NOTE | 2025-02-07 13:55 | NUR ---
PATIENT DISCHARGED HOME ID BAND,IV AND TELE PEG REMOVED. DISCHARGE INSTRUCTIONS EXPLAINED AND GIVEN TO PATIENT. PATIENT VERBALIZED UNDERSTANDING. BELONGINGS PACKED AND TAKEN BY PATIENT. WHEELED DOWN TO PRIVATE CAR.
[2025-02-08] MEDS ORDERED: ENOXAPARIN SODIUM 40 MG/0.4 ML SYRINGE SQ SCH (09:00)
== END 2025-02-07 13:56 | disposition home or self-care (01) | DRG 871 ==
LOC: EDH 12:57 → EDHIP 14:53 → 2AH 17:00 → 3CH 02-07 06:14
PROVIDERS: ADMIT Internal Medicine; ATTEND Internal Medicine
DX: A41.89 Other specified sepsis (principal); J96.01 Acute respiratory failure with hypoxia; E87.20 Acidosis, unspecified; J10.1 Influenza due to other identified influenza virus with other respiratory manifestations; J44.1 Chronic obstructive pulmonary disease with (acute) exacerbation; I10 Essential (primary) hypertension; J45.901 Unspecified asthma with (acute) exacerbation; E78.5 Hyperlipidemia, unspecified; E83.42 Hypomagnesemia; I25.10 Atherosclerotic heart disease of native coronary artery without angina pectoris; B97.89 Other viral agents as the cause of diseases classified elsewhere
CPT/HCPCS: 36415; 36600; 71045; 80048; 80053; 82435; 82803; 82947; 83036; 83605; 83735; 83880; 84132; 84145; 84295; 84443; 84484; 85018; 85025; 85027; 87040; 87071; 87205; 87426; 87804; 93005; 94640; 94664; 96374; 96375; 99285; G0378; J0692; J2919; J3411; J3490; J7030; J1308